=== PATIENT | male | born 1970 | race Two or more races ===

== ENCOUNTER 2021-01-08 09:00 | Emergency (ER) | payer OTHER ==
[~2021-01-08] VITALS: Ht 167.6 cm; Wt 102.1 kg
[2021-01-08] MEDS ORDERED: SODIUM CHLORIDE 0.9% 1,000 ML IV ONE (09:15)
[2021-01-08] MEDS ORDERED: LORazepam 2MG/ML-1ML VIAL IV ONE (09:15)
[2021-01-08 09:26] LABS: Basophils # (auto) 0 10 ^3/uL (0-0.2); Eosinophils # (auto) 0 10 ^3/uL (0-0.8); Monocytes # (auto) 0.3 10 ^3/uL (0-1.3); Neutrophils # (auto) 1.8 10 ^3/uL (1.6-8.6); White Blood Cell 3.1 10^3/uL (4.4-10.8)
[2021-01-08 09:28] LABS: Basophils % (auto) 0.7 % (0.0-2.0); Eosinophils % (auto) 0.2 % (0.0-7.0); Hematocrit 35.8 % (41.0-53.0); Hemoglobin 12.5 g/dL (13.5-17.5); Lymphocytes # (auto) 0.9 10 ^3/uL (0.4-5.4); Lymphocytes % (auto) 30.1 % (10.0-50.0); Mean Corpuscular Hgb Conc. 34.9 g/dL (32.0-36.0); Mean Corpuscular Volume 94.5 fL (80.0-100.0); Monocytes % (auto) 10.2 % (0.0-12.0); Neutrophils % (auto) 58.8 % (37.0-80.0); Nucleated Red Blood Cells % 0.7 %; Red Blood Cells 3.79 10^6/uL (4.5-5.90); Red Cell Distribution Width 14.8 % (11.8-14.3)
[2021-01-08 09:41] LABS: Albumin 3.8 g/dL (3.4-5.0); Anion Gap 11 (5-15); Blood Urea Nitrogen 4 mg/dL (7-18); Calcium 8.7 mg/dL (8.5-10.1); Carbon Dioxide 25 mmol/L (21-32); Chloride 98 mmol/L (98-107); Glucose 138 mg/dL (74-106); Potassium 3.3 mmol/L (3.5-5.1); Sodium 134 mmol/L (136-145)
[2021-01-08 09:46] LABS: Alanine Aminotransferase 69 U/L (16-61); Alkaline Phosphatase 147 U/L (45-117); Aspartate Aminotransferase 171 U/L (15-37); BUN/Creatinine Ratio 6.6; Bilirubin, Total 1.2 mg/dL (0.2-1.0); GFR African American 179 mL/min; GFR Non-African American 148 mL/min; Total Protein 8.5 g/dL (6.4-8.2)
[2021-01-08 09:58] LABS: Platelet Count (auto) 53 10^3/uL (140-450)
[2021-01-08] MEDS ORDERED: THIAMINE 100mg/ml INJ (200mg/2ml VIAL) IV ONE (10:15)
[2021-01-08 11:15] VITALS: BP 153/86
== END 2021-01-08 11:39 | disposition home or self-care (01) ==
LOC: EDBD 09:00 → ER 09:00
DX: G40.909 Epilepsy, unspecified, not intractable, without status epilepticus (principal); Z72.89 Other problems related to lifestyle; R94.5 Abnormal results of liver function studies
CPT/HCPCS: 36415; 70450; 71045; 80053; 84484; 85025; 96361; 96374; 96375; 99285; J2060; J3411; J7030